=== PATIENT | male | born 1950 | race Caucasian/White ===

== ENCOUNTER → 2017-05-26 | Outpatient (CLI) | payer BC ==
[~2017-05-26] MED LIST: CARDI-OMEGA1000 MG PO; GLUCOSAMINE & C1 CA1 PO; LOPRESSOR 550 MG/TAB PO; ZYRTEC 10MG10 MG PO
== END ==
LOC: COL.VAS 07:49
DX: I08.0 Rheumatic disorders of both mitral and aortic valves (principal); R09.89 Other specified symptoms and signs involving the circulatory and respiratory systems

== ENCOUNTER 2019-10-21 12:04 | Emergency (ER) | payer BC ==
[~2019-10-21] VITALS: Ht 182.9 cm; Wt 106.8 kg
[2019-10-21 12:11] VITALS: TEMP 99.3
[2019-10-21] MEDS ORDERED: PRILOSEC 20MG20 MG PO (12:15)
[2019-10-21 12:54] LABS: MEAN CELL VOLUME 87 fl (80.0-100.0); MEAN CORPUSCULAR HGB CONC 33 g/dl (33.0-37.0); MEAN PLATELET VOLUME 10.3 fl (7.4-10.4); PLATELET COUNT 243 K/mm3 (130-400); RED BLOOD COUNT 6.39 M/mm3 (4.20-5.60); REDCELL DISTRIBUTION WIDTH-CV 13.3 % (11.5-14.5)
[2019-10-21 13:02] LABS: HEMATOCRIT 55.3 % (42.0-52.0); HEMOGLOBIN 18.4 g/dl (13.5-18.0); MEAN CORPUSCULAR HEMOGLOBIN 29 pg (27.0-31.0)
[2019-10-21 13:09] LABS: ALBUMIN 5.1 gm/dL (3.5-5.0); BILIRUBIN,TOTAL 0.8 mg/dL (0.0-1.0); C-REACTIVE PROTEIN 0.7 mg/dL (0.0-0.9); CALCIUM 9.4 mg/dL (8.4-10.2); CREATININE, serum 1.13 (0.66-1.25); POTASSIUM 4.4 mmol/L (3.4-5.0); TOTAL PROTEIN 8.6 gm/dL (6.4-8.2)
[2019-10-21 13:12] LABS: BAND 7 % (0-10); LYMPHOCYTE 3 % (20.0-51.0); NEUTROPHILS 84 % (42.0-75.2); PLATELET ESTIMATE NORMAL (NORMAL)
[2019-10-21] MEDS ORDERED: PHENERGAN 25 TA25 MG PO (14:26)
[2019-10-21 15:10] VITALS: BP 149/82; PULSE 88
== END 2019-10-21 15:12 | disposition home or self-care (01) ==
LOC: COL.ER 12:04
PROVIDERS: Emergency Medicine
DX: R11.10 Vomiting, unspecified (principal)
CPT/HCPCS: J2405; J2550; J7030